=== PATIENT | female | born 1990 | race Two or more races ===

== ENCOUNTER 2019-06-08 08:55 | Emergency (ER) | payer MEDICAID ==
[~2019-06-08] VITALS: Ht 152.4 cm; Wt 79.4 kg
[2019-06-08 09:15] VITALS: BP 130/94
[2019-06-08] MEDS ORDERED: IBUPROFEN 800 MG TAB PO ONE (10:00)
== END 2019-06-08 10:32 | disposition home or self-care (01) ==
LOC: ER 08:55
DX: K02.9 Dental caries, unspecified (principal)

== ENCOUNTER 2021-07-12 11:08 | Emergency (ER) | payer MEDICAID ==
[~2021-07-12] VITALS: Ht 154.9 cm; Wt 86.2 kg
[2021-07-12] MEDS ORDERED: ALBUTEROL SULF 2.5 MG/0.5ML(0.5%) NEB SOLN NEB ONE (12:15)
[2021-07-12] MEDS ORDERED: IPRATROPIUM BROM 0.5 MG/2.5ML INH SOL NEB ONE (12:15)
[2021-07-12 12:30] LABS: Albumin 3.5 g/dL (3.4-5.0); Calcium 9.1 mg/dL (8.5-10.1); Potassium 4.4 mmol/L (3.5-5.1)
[2021-07-12 12:32] LABS: BUN/Creatinine Ratio 15.7; Bilirubin, Total 0.4 mg/dL (0.2-1.0); Total Protein 7.2 g/dL (6.4-8.2)
[2021-07-12 19:01] VITALS: BP 151/75
== END 2021-07-12 19:24 | disposition home or self-care (01) ==
LOC: ER 11:08
DX: J45.901 Unspecified asthma with (acute) exacerbation (principal); E11.9 Type 2 diabetes mellitus without complications
CPT/HCPCS: 36415; 71045; 80053; 94640; 99284; J7644